=== PATIENT | female | born 1935 | race Caucasian/White ===

== ENCOUNTER 2016-10-17 15:01 | Emergency (ER) | payer MEDICARE, BC ==
[2016-10-17 15:12] VITALS: BP 217/85
--- NOTE | 2016-10-17 16:54 | ED Physician Documentation ---
PD HPI Fall - Stated complaint Stated Complaint: R SHOULDER INJURY - Chief complaint Chief Complaint: Ext Problem - History obtained from History obtained from: Patient, Family - History of Present Illness Mechanism of injury: Tripped Fall distance: Standing position Where injury occurred: Park Timing - onset: Today Injury(ies) location: Right Upper Extremity, Right Lower Extremity Quality of pain: Pain Associated symptoms: No: LOC, AMS, Amnesia, Seizures, Ear drainage, Nasal drainage, Neck pain, Weakness, Paresthesias, Dyspnea, Nausea / vomiting, Hematemesis, Abdominal distension Symptoms improve with: Rest, Position Worsens with: Movement, Palpation Contributing factors: No: Anticoagulated Similar symptoms before: Has not had sx before Recently seen: Not recently seen - Additional information Additional information: 81-year-old female was out on a function with the prison residence when she was walking across a carpeted floor and tripped falling onto her right side. She is not uncertain about exactly how this fall happened and she complains of pain in the right shoulder. She landed on the right elbow she had some pain there but does not have pain there now and she has some pain in the right hip she is able to walk and bear weight but moves slowly. Review of Systems Constitutional: denies: Fever, Chills Eyes: denies: Decreased vision Ears: denies: Ear pain Nose: denies: Congestion Throat: denies: Sore throat Respiratory: denies: Cough GI: denies: Nausea, Vomiting : denies: Dysuria Skin: denies: Rash Musculoskeletal: reports: Extremity pain, Joint pain, Pain with weight bearing. 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 HEENT: Tonsil/Adenoidectomy - Present Medications Home Medications: Ambulatory Orders Medication Instructions Recorded Confirmed No Known Home Medications [No 10/17/16 10/17/16 Known Home Medications] - Allergies Allergies/Adverse Reactions: Allergies Allergy/AdvReac Type Severity Reaction Status Date / Time codeine AdvReac Dizziness Verified 10/17/16 15:12 - Social History Does the pt smoke?: No Smoking Status: Never smoker Does the pt drink ETOH?: No Does the pt have substance abuse?: No - Immunizations Immunizations are current?: No Immunizations: TDAP >10years/unknown - POLST Patient has POLST: No PD ED PE NORMAL - Vitals Vital signs reviewed: Yes (hypertensive ) - General General: No acute distress, Well developed/nourished - HEENT HEENT: Atraumatic, PERRL, EOMI - Neck Neck: Supple, no meningeal sign, No bony TTP - Respiratory Respiratory: No respiratory distress - Back Back: No CVA TTP, No spinal TTP - Derm Derm: Normal color, Warm and dry, No rash - Extremities Extremities: No deformity, No edema, Other (There is no tenderness to the right clavicle. There is tenderness to the right shoulder anteriorly and she is albe to move this through a ROM with minimal pain. The elbow is without tenderness or reduction in ROM as is the right wrist. The right hip is with mild tenderness and she is walking stiff legged. ) - Neuro Neuro: No motor deficit, No sensory deficit - Psych Psych: Normal mood, Normal affect Results - Vitals Vitals: Vital Signs - 24 hr 10/17/16 15:06 Temperature 36.6 C Heart Rate 80 Respiratory 20 Rate Blood Pressure 217/85 H O2 Saturation 98 Oxygen O2 Source [] Room air O2 Source Room air - Labs Labs: Laboratory Tests 10/17/16 18:25 Urine Color YELLOW Urine Clarity CLEAR Urine pH 6.0 Ur Specific [place] 1.025 Urine Protein 30 H Urine Glucose (UA) NEGATIVE Urine Ketones NEGATIVE Urine Occult Blood NEGATIVE Urine Nitrite NEGATIVE Urine Bilirubin NEGATIVE Urine Urobilinogen 0.2 (NORMAL) Ur Leukocyte Esterase NEGATIVE Urine RBC 0-5 Urine WBC 0-3 Ur Squamous Epith Cells FEW Squamous Urine Bacteria Few Urine Mucus Few Strands Ur Microscopic Review INDICATED Urine Culture Comments NOT INDICATED - Rads (name of study) Right hip Radiology: Prelim report reviewed (Impression: No evidence of right hip or pelvis fracture.), EMP read indepedently, See rad report Right shoulder Radiology: Prelim report reviewed (Impression: 1. Nondisplaced scapular fracture.2. No glenohumeral fracture or dislocation. Mild degenerative changes.), EMP read indepedently, See rad report Departure - Departure Disposition: 01 Home, Self Care Clinical Impression: Contusion of hip, right Qualifiers: Encounter type: initial encounter Qualified Code(s): S70.01XA - Contusion of right hip, initial encounter Scapular fracture Qualifiers: Encounter type: initial encounter Scapula location: body Fracture type: closed Fracture alignment: nondisplaced Laterality: right Qualified Code(s): S42.114A - Nondisplaced fracture of body of scapula, right shoulder, initial encounter for closed fracture Condition: Stable Instructions: ED Immobilizer Shoulder, ED Contusion Hip Follow-Up: Familia Alexis MD [Primary Care Provider] - [facility] [Provider Group]
--- NOTE | 2016-10-17 18:35 | XRAY Preliminary Report ---
Exam: XR Shoulder 3 View RT IMPRESSION: 1. Nondisplaced scapular fracture. 2. No glenohumeral fracture or dislocation. Mild degenerative changes. [facility] SITE ID: [id number]
--- NOTE | 2016-10-17 18:37 | XRAY Preliminary Report ---
Exam: XR Hip w/Pelvis 2-3V RT IMPRESSION: No evidence of right hip or pelvis fracture. [facility] SITE ID: [id number]
--- NOTE | 2016-10-17 18:38 | XRAY Report ---
EXAM: RIGHT SHOULDER RADIOGRAPHY EXAM DATE: 10/17/2016 06:06 PM. CLINICAL HISTORY: Fall elbow contusion shoulder pain is dominant. COMPARISON: None. TECHNIQUE: 3 views. FINDINGS: Bones: Nondisplaced fracture involving the scapula just below the scapular spine seen only on the tra nsscapular view. Joints: Mild glenohumeral joint degenerative changes. Normal alignment. Soft tissues: The visualized hemithorax is unremarkable. No soft tissue swelling. IMPRESSION: 1. Nondisplaced scapular fracture. 2. No glenohumeral fracture or dislocation. Mild degenerative changes. [facility] Referring Provider Line: [phone] SITE ID: [id number]
--- NOTE | 2016-10-17 18:40 | XRAY Report ---
EXAM: RIGHT HIP AND PELVIS RADIOGRAPHY EXAM DATE: 10/17/2016 06:05 PM. HISTORY: Fall hip pain, walking. COMPARISONS: None. TECHNIQUE: 1 view of the pelvis and 1 view of the hip. FINDINGS: Bones: Normal. No fracture or bone lesion. Joints: The bilateral hip, pubis symphysis, and sacroiliac joints are preserved. Soft Tissues: Normal. No soft tissue swelling. IMPRESSION: No evidence of right hip or pelvis fracture. [facility] Referring Provider Line: [phone] SITE ID: [id number]
[2016-10-17 18:47] LABS: BILIRUBIN,URINE NEGATIVE (NEGATIVE)
[2016-10-17 19:00] LABS: UA w/ MICROSCOPIC CHARGE YES
[2016-10-17 19:13] LABS: UR CULTURE IF IND NOT INDICATED; WBC,URINE 0-3 /HPF (0-5)
== END 2016-10-17 19:30 | disposition home or self-care (01) ==
LOC: ED 15:01
DX: S42.114A Nondisplaced fracture of body of scapula, right shoulder, initial encounter for closed fracture (principal); S70.01XA Contusion of right hip, initial encounter; W01.0XXA Fall on same level from slipping, tripping and stumbling without subsequent striking against object, initial encounter; Y93.01 Activity, walking, marching and hiking; Y92.830 Public park as the place of occurrence of the external cause; I10 Essential (primary) hypertension
CPT/HCPCS: 81001; 81003; 87086; 99283

== ENCOUNTER 2016-10-31 16:49 | Outpatient (CLI) | payer MEDICARE, BC ==
--- NOTE | 2016-11-01 10:09 | MRI Report ---
EXAM: RIGHT HIP MRI WITHOUT CONTRAST EXAM DATE: 10/31/2016 05:42 PM. CLINICAL HISTORY: Right hip pain after fall 2 months ago. COMPARISON: 10/17/2016 radiograph. TECHNIQUE: Multiplanar, multisequence T1-weighted and fluid-sensitive, small seygv-lr-jytf sequences of the hip and large rklwd-bu-wynr sequences of the pelvis without contrast. Other: None. FINDINGS: Bones: There are trabecular fractures of the right obturator ring. A vertical fracture is seen near t he right pubic root on series 401, image 10. There is a transverse fracture through the right inferio r pubic ramus on series 601, image 54. Extensive marrow edema is seen throughout the entire medial ri ght obturator ring. Patient also has a trabecular left parasymphyseal pubic bone fracture as seen on series 5, image 5. The sacrum has a transverse fracture that is incompletely evaluated on the present examination. It is likely in the lower sacrum and can be seen on series 601, image 25. Right Hip: No acetabular retroversion. Femoral head/neck offset is within normal limits. No effusion or loose bodies. There is severe cartilage loss in the right femur. The right superior labrum has luis felipe r full-thickness clefting superiorly (901/15). Minimal osteophyte formation is present. The ligamentu m teres is intact. Other Joints: The visualized lumbar spine, sacroiliac joints, symphysis pubis, and contralateral hip are unremarkable. Musculature: Extensive muscle edema in the right upper adductor muscles is consistent with the recent trauma. No asymmetric fatty atrophy. The gluteus medius and minimus tendons are normal. The visualiz ed hamstring tendons are normal. The ischiofemoral space is normal. Pelvic Cavity: The patient has had a hysterectomy. The other visualized pelvic organs are unremarkabl e. Other: The visualized sciatic nerves are unremarkable. No bursitis. The subcutaneous tissues are unre markable. IMPRESSION: 1. Trabecular fractures of the right obturator ring, the left parasymphyseal pubic bone, and the infe rior sacrum. 2. Minimal right hip osteoarthritis. [facility] MUSCULOSKELETAL RADIOLOGY SECTION Referring Provider Line: [phone] SITE ID: [id number]
== END 2016-10-31 16:50 | disposition home or self-care (01) ==
LOC: DI 16:49
PROVIDERS: ATTEND Orthopaedic Surgery
DX: M25.551 Pain in right hip (principal); S32.592A Other specified fracture of left pubis, initial encounter for closed fracture; S32.10XA Unspecified fracture of sacrum, initial encounter for closed fracture; M16.11 Unilateral primary osteoarthritis, right hip

== ENCOUNTER 2017-05-03 17:52 | Emergency (ER) | payer MEDICARE, BC ==
[2017-05-03] MEDS ORDERED: ONDANSETRON ODT 4 MG TABLET TL STA (18:39)
[2017-05-03] MEDS ORDERED: HYDROcod/ACETAM 5/325 MG TABLET PO STA (18:39)
--- NOTE | 2017-05-03 18:43 | ED Physician Documentation ---
PD HPI MAJOR TRAUMA - Stated complaint Stated Complaint: GLF - Chief complaint Chief Complaint: Trauma Hd/Nk - History obtained from History obtained from: Patient, Family - History of Present Illness Mechanism of injury: Fell (Trip and fall, she has a head injury but no loss of consciousness, a scrape on the front of the head and mild headache. She mainly complains of right hand pain. She has been ambulatory since the accident. 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 HEENT: Tonsil/Adenoidectomy - Present Medications Home Medications: Ambulatory Orders Medication Instructions Recorded Confirmed HYDROcod/ACETAM 5/325 [[place] 5/325] 1 - 2 ea PO Q6H PRN #15 tablet 05/03/17 - Allergies Allergies/Adverse Reactions: Allergies Allergy/AdvReac Type Severity Reaction Status Date / Time codeine AdvReac Dizziness Verified 05/03/17 18:01 - Social History Does the pt smoke?: No Smoking Status: Never smoker Does the pt drink ETOH?: No Does the pt have substance abuse?: No - Immunizations Immunizations are current?: No Immunizations: TDAP >10years/unknown - POLST Patient has POLST: No PD ED PE NORMAL - Vitals Vital signs reviewed: Yes - General General: Alert and oriented X 3, No acute distress - HEENT HEENT: PERRL, EOMI, Other (Abrasion on the right forehead) - Neck Neck: Supple, no meningeal sign, No bony TTP - Extremities Extremities: Other (Very tender in the area of the fourth and fifth metacarpals of the right hand with decreased range of motion, no obvious tenderness about the elbow or wrist. Hips are nontender with good range of motion.) - Neuro Neuro: Alert and oriented X 3, Normal speech Results - Vitals Vitals: Vital Signs - 24 hr 05/03/17 17:57 Temperature 36.8 C Heart Rate 81 Respiratory 18 Rate Blood Pressure 195/91 H O2 Saturation 99 Oxygen O2 Source [With Activity] Room air O2 Source Room air - Rads (name of study) Head CT Radiology: EMP read contemporaneously (NAD) R elbow and Hand Xrs Radiology: EMP read contemporaneously (Somewhat limited by osteopenia, elbow is negative, concerning for proximal third and fourth metacarpal fractures.) Procedures - Splint (location) R hand Splint applied by: Tech Type of splint: Fiberglass, Short arm, Volar cock up Other: Patient tolerated well, No complications, Neurovascular intact, Good alignment Departure - Departure Disposition: 01 Home, Self Care Clinical Impression: Contusion of right orbit Qualifiers: Encounter type: initial encounter Qualified Code(s): S05.11XA - Contusion of eyeball and orbital tissues, right eye, initial encounter Facial contusion Qualifiers: Encounter type: initial encounter Qualified Code(s): S00.83XA - Contusion of other part of head, initial encounter Contusion of elbow, right Qualifiers: Encounter type: initial encounter Qualified Code(s): S50.01XA - Contusion of right elbow, initial encounter Closed fracture of 3rd metacarpal Qualifiers: Encounter type: initial encounter Metacarpal location: base Fracture alignment : nondisplaced Laterality: right Qualified Code(s): S62.342A - Nondisplaced fracture of base of third metacarpal bone, right hand, initial encounter for closed fracture Closed fracture of 4th metacarpal Qualifiers: Encounter type: initial encounter Metacarpal location: base Fracture alignment : nondisplaced Laterality: right Qualified Code(s): S62.344A - Nondisplaced fracture of base of fourth metacarpal bone, right hand, initial encounter for closed fracture Condition: Good Record reviewed to determine appropriate education?: Yes Instructions: ED Cast Care Fiberglass, ED Fx Hand Closed Follow-Up: [facility] [Provider Group] - Within 1 week Prescriptions: HYDROcod/ACETAM 5/325 [[place] 5/325] 1 - 2 ea PO Q6H PRN #15 tablet PRN Reason: Pain Comments: Your blood pressure was elevated today on check into the emergency department. This does not mean that you have hypertension, it is a common phenomenon to come to the emergency department and have elevated blood pressure. I recommend that you see your primary care physician within the week to have it rechecked when you are feeling better. Do not drink or drive while taking narcotic pain medication. Note that many narcotic pain relievers also contain Tylenol/acetaminophen. Please ensure that your total dose of acetaminophen from all sources does not exceed 3 g (3000 mg) per day. You may get constipated while on this medication. Take a stool softener such as Colace twice a day while you are on it. Also add an ieka-mvz-vkrhrah laxative such as senna or MiraLAX on any day that you do not have a bowel movement. If you received a narcotic pain medication or sedative while in the emergency department, do not drive for the next 24 hours.
--- NOTE | 2017-05-03 19:59 | CT Report ---
EXAM: CT HEAD EXAM DATE: 05/03/2017 07:43 PM. CLINICAL HISTORY: Head injury. Ground-level fall. COMPARISON: Head CT 03/07/2016. TECHNIQUE: Multiaxial CT images were obtained from the foramen magnum to the vertex. Reformats: Coron al. IV contrast: None. In accordance with CT protocol optimization, one or more of the following dose reduction techniques w ere utilized for this exam: automated exposure control, adjustment of mA and/or KV based on patient s ize, or use of iterative reconstructive technique. FINDINGS: Parenchyma: No intraparenchymal hemorrhage. No evidence of mass, midline shift, or CT findings of acu te infarction. Baker-white differentiation is distinct. Bilateral chronic microangiopathic white matte r changes are evident. Extraaxial Spaces: Normal for age. No subdural or epidural collections identified. Ventricles: The ventricles and cortical sulci are enlarged, consistent with age-related tissue loss. Sinuses and orbits: Orbits appear unremarkable. Left sphenoid sinus mucus retention cyst or polyp par tially calcified again noted measuring 1.4 cm, slightly increased. Minimal left sphenoid sinus mucosa l thickening, mildly decreased. Otherwise, the visualized paranasal sinuses and mastoid air cells sesar ear clear. Bones: No evidence of fracture or calvarial defect. Other: Moderate right frontal scalp soft tissue contusion with small hematoma. IMPRESSION: 1. Generalized age-related cortical atrophic changes without evidence of acute intracranial abnormali ty. 2. Moderate right frontal scalp soft tissue contusion with small hematoma. 3. Otherwise, as above. [facility] Referring Provider Line: [phone] SITE ID: [id number]
--- NOTE | 2017-05-03 19:59 | CT Preliminary Report ---
Exam: CT HEAD W/O IMPRESSION: 1. Generalized age-related cortical atrophic changes without evidence of acute intracranial abnormali ty. 2. Moderate right frontal scalp soft tissue contusion with small hematoma. 3. Otherwise, as above. [facility] SITE ID: [id number]
--- NOTE | 2017-05-03 20:20 | XRAY Report ---
EXAM: RIGHT HAND RADIOGRAPHY EXAM DATE: 05/03/2017 06:41 PM. CLINICAL HISTORY: Hand inj, fall. COMPARISON: 10/10/2013. TECHNIQUE: 3 views. FINDINGS: Bones: There are new deformities of the proximal third and fourth metacarpal. There appear to be disp laced fractures of the proximal metaphysis of the third and fourth metacarpal. These fractures are no t well seen due to multiple overlapping densities. Joints: There are findings of osteoarthritis. There is joint space narrowing with spurring, subchondr al cyst subluxation involving multiple joints, greatest at the second distal interphalangeal joint. Soft Tissues: There is soft tissue swelling of the second digit. There is dorsal hand soft tissue swe lling. IMPRESSION: 1. Suspicious for displaced fractures of the proximal third and fourth metacarpal metaphysis. 2. Moderately advanced findings of chronic osteoarthritis. [facility] Referring Provider Line: [phone] SITE ID: [id number]
--- NOTE | 2017-05-03 20:20 | XRAY Preliminary Report ---
Exam: XR HAND 3 VIEW RT IMPRESSION: 1. Suspicious for displaced fractures of the proximal third and fourth metacarpal metaphysis. 2. Moderately advanced findings of chronic osteoarthritis. [facility] SITE ID: [id number]
--- NOTE | 2017-05-03 20:29 | XRAY Report ---
EXAM: RIGHT ELBOW RADIOGRAPHY EXAM DATE: 05/03/2017 06:41 PM. CLINICAL HISTORY: Elbow injury, fall. COMPARISON: None. TECHNIQUE: 3 views. FINDINGS: Bones: Normal. No fractures or bone lesions. Joints: Normal. No effusion. No subluxation. Soft Tissues: Normal. No soft tissue swelling. IMPRESSION: No fracture or subluxation. [facility] Referring Provider Line: [phone] SITE ID: [id number]
[2017-05-03] MEDS ORDERED: HYDROcod/ACET 5/325 Prepack 6 PO STA (20:39)
[2017-05-03 21:11] VITALS: BP 193/82
== END 2017-05-03 21:11 | disposition home or self-care (01) ==
LOC: ED 17:52
DX: S62.342A Nondisplaced fracture of base of third metacarpal bone, right hand, initial encounter for closed fracture (principal); S62.344A Nondisplaced fracture of base of fourth metacarpal bone, right hand, initial encounter for closed fracture; S00.11XA Contusion of right eyelid and periocular area, initial encounter; S00.83XA Contusion of other part of head, initial encounter; S50.01XA Contusion of right elbow, initial encounter; W01.0XXA Fall on same level from slipping, tripping and stumbling without subsequent striking against object, initial encounter; I10 Essential (primary) hypertension
CPT/HCPCS: 29125; 70450; 73080; 73130; 99283; A9270; Q0162

== ENCOUNTER 2017-05-08 16:28 | Emergency (ER) | payer MEDICARE, BC ==
[2017-05-08 16:43] VITALS: BP 182/84
--- NOTE | 2017-05-08 17:14 | ED Physician Documentation ---
PD HPI UPPER EXT INJURY - Stated complaint Stated Complaint: RT ARM PX - Chief complaint Chief Complaint: Ext Problem - History obtained from History obtained from: Patient, Family - History of Present Illness Location: Other (Seen by me recently after a fall, she had 2 metacarpal fractures. 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 HEENT: Tonsil/Adenoidectomy - Present Medications Home Medications: Ambulatory Orders Medication Instructions Recorded Confirmed HYDROcod/ACETAM 5/325 [[place] 5/325] 1 - 2 ea PO Q6H PRN #15 tablet 05/03/17 HYDROcod/ACETAM 5/325 [[place] 5/325] 1 - 2 ea PO Q6H PRN #15 tablet 05/08/17 - Allergies Allergies/Adverse Reactions: Allergies Allergy/AdvReac Type Severity Reaction Status Date / Time codeine AdvReac Dizziness Verified 05/08/17 16:43 - Social History Does the pt smoke?: No Smoking Status: Never smoker Does the pt drink ETOH?: No Does the pt have substance abuse?: No - Immunizations Immunizations are current?: No Immunizations: TDAP >10years/unknown - POLST Patient has POLST: No PD ED PE NORMAL - Vitals Vital signs reviewed: Yes - General General: Alert and oriented X 3, No acute distress - Extremities Extremities: Other (Right hand is quite swollen and tender and bruised.) - Neuro Neuro: Alert and oriented X 3, Normal speech Results - Vitals Vitals: Vital Signs - 24 hr 05/08/17 16:39 Temperature 36.9 C Heart Rate 90 Respiratory 18 Rate Blood Pressure 182/84 H O2 Saturation 96 Oxygen O2 Source [With Activity] Room air O2 Source Room air PD MEDICAL DECISION MAKING - ED course ED course: We talked about the importance of immobilization with fractures, despite this conversation she wants something removable so that she can shower and she understands the risks of not having full immobilization and she was placed in a removable Velcro splint. Departure - Departure Disposition: 01 Home, Self Care Clinical Impression: Closed fracture of 3rd metacarpal Qualifiers: Encounter type: subsequent encounter Metacarpal location: base Fracture alignment: nondisplaced Laterality: right Fracture healing: with routine healing Qualified Code(s): S62.342D - Nondisplaced fracture of base of third metacarpal bone, right hand, subsequent encounter for fracture with routine healing Closed fracture of 4th metacarpal Qualifiers: Encounter type: subsequent encounter Metacarpal location: base Fracture alignment: nondisplaced Laterality: right Fracture healing: with routine healing Qualified Code(s): S62.344D - Nondisplaced fracture of base of fourth metacarpal bone, right hand, subsequent encounter for fracture with routine healing Condition: Good Record reviewed to determine appropriate education?: Yes Follow-Up: [facility] [Provider Group] Prescriptions: HYDROcod/ACETAM 5/325 [[place] 5/325] 1 - 2 ea PO Q6H PRN #15 tablet PRN Reason: Pain Comments: Wear the splint as much as possible and follow-up with the orthopedic surgeon as soon as possible. Your blood pressure was elevated today on check into the emergency department. This does not mean that you have hypertension, it is a common phenomenon to come to the emergency department and have elevated blood pressure. I recommend that you see your primary care physician within the week to have it rechecked when you are feeling better.
== END 2017-05-08 17:23 | disposition home or self-care (01) ==
LOC: ED 16:28
DX: S62.342D Nondisplaced fracture of base of third metacarpal bone, right hand, subsequent encounter for fracture with routine healing (principal); S62.344D Nondisplaced fracture of base of fourth metacarpal bone, right hand, subsequent encounter for fracture with routine healing; X58.XXXD Exposure to other specified factors, subsequent encounter; Z76.0 Encounter for issue of repeat prescription; I10 Essential (primary) hypertension
CPT/HCPCS: 99283

== ENCOUNTER 2017-06-19 14:33 | Outpatient (CLI) | payer MEDICARE, BC ==
--- NOTE | 2017-06-20 10:05 | XRAY Report ---
FOUR VIEW RIGHT WRIST: 06/19/2017 CLINICAL INDICATION: Metacarpal fractures. FINDINGS: AP, lateral, oblique, scaphoid views of the right wrist were compared to hand films of 05/03/2017. Osteoarthritis appears stable. There are healing fractures of the proximal third, fourth, and fifth metacarpals, with callus formation. No carpal bone fracture is appreciated. IMPRESSION: HEALING FRACTURES OF THE PROXIMAL THIRD, FOURTH, AND FIFTH METACARPALS. TD: 06/20/2017 10:05
== END 2017-06-19 14:34 | disposition home or self-care (01) ==
LOC: DI.N 14:33
PROVIDERS: ATTEND Family Medicine
DX: S62.392D Other fracture of third metacarpal bone, right hand, subsequent encounter for fracture with routine healing (principal); S62.394D Other fracture of fourth metacarpal bone, right hand, subsequent encounter for fracture with routine healing; S62.396D Other fracture of fifth metacarpal bone, right hand, subsequent encounter for fracture with routine healing

== ENCOUNTER 2018-03-21 17:19 | Emergency (ER) | payer MEDICARE, BC ==
[2018-03-21 17:44] LABS: BILIRUBIN,URINE NEGATIVE (NEGATIVE); GLUCOSE, URINE (UA) NEGATIVE (NEGATIVE); KETONES,URINE (UA) NEGATIVE (NEGATIVE); LEUKOCYTE ESTERASE, URINE MODERATE (NEGATIVE); NITRITE,URINE NEGATIVE (NEGATIVE); OCCULT BLOOD,URINE MODERATE (NEGATIVE); PROTEIN,URINE TRACE mg/dL (NEGATIVE); UROBILINOGEN,URINE 0.2 (NORMAL) E.U./dL (NORMAL)
--- NOTE | 2018-03-21 17:45 | ED Physician Documentation ---
PD HPI FEMALE - Stated complaint Stated Complaint: FEMALE - Chief complaint Chief Complaint: UTI - History obtained from History obtained from: Patient - History of Present Illness Timing - onset: Yesterday (Since last night she has had urinary burning and frequency associated with fatigue but no nausea, fevers, or flank pain.) Review of Systems Constitutional: denies: Fever, Chills GI: denies: Abdominal Pain, Nausea, Vomiting : reports: Dysuria, Frequency PD PAST MEDICAL HISTORY - Past Medical History Cardiovascular: Hypertension Musculoskeletal: None - Past Surgical History Past Surgical History: Yes 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 HEENT: Tonsil/Adenoidectomy - Present Medications Home Medications: Ambulatory Orders Medication Instructions Recorded Confirmed Phenazopyridine [Pyridium] 100 mg PO TID #6 tablet 03/21/18 RX: Ciprofloxacin [Cipro] 250 mg PO Q12H #10 tablet 03/21/18 - Allergies Allergies/Adverse Reactions: Allergies Allergy/AdvReac Type Severity Reaction Status Date / Time codeine AdvReac Dizziness Verified 03/21/18 17:25 - Social History Does the pt smoke?: No Smoking Status: Never smoker Does the pt drink ETOH?: No Does the pt have substance abuse?: No - Immunizations Immunizations are current?: No Immunizations: TDAP >10years/unknown - POLST Patient has POLST: No PD ED PE NORMAL - Vitals Vital signs reviewed: Yes - General General: Alert and oriented X 3, No acute distress - Abdomen Abdomen: Soft, Non tender - Back Back: No CVA TTP - Neuro Neuro: Alert and oriented X 3 (But with some memory difficulties), Normal speech Results - Vitals Vitals: Vital Signs - 24 hr 03/21/18 03/21/18 17:21 18:04 Temperature 36.3 C L Heart Rate 87 76 Respiratory 20 16 Rate Blood Pressure 170/111 H 178/88 H O2 Saturation 96 97 Oxygen O2 Source [With Activity] Room air O2 Source Room air - Labs Labs: Laboratory Tests 03/21/18 17:30 Urine Color YELLOW Urine Clarity HAZY Urine pH 6.0 Ur Specific [place] 1.025 Urine Protein TRACE Urine Glucose (UA) NEGATIVE Urine Ketones NEGATIVE Urine Occult Blood MODERATE H Urine Nitrite NEGATIVE Urine Bilirubin NEGATIVE Urine Urobilinogen 0.2 (NORMAL) Ur Leukocyte Esterase MODERATE H Urine RBC TNTC H Urine WBC >25 H Urine WBC Clumps PRESENT Ur Squamous Epith Cells RARE Squamous Urine Bacteria Many H Ur Microscopic Review INDICATED Urine Culture Comments INDICATED Departure - Departure Disposition: 01 Home, Self Care Clinical Impression: Cystitis Condition: Good Record reviewed to determine appropriate education?: Yes Instructions: ED UTI Cystitis Female Prescriptions: RX: Ciprofloxacin [Cipro] 250 mg PO Q12H #10 tablet Phenazopyridine [Pyridium] 100 mg PO TID #6 tablet Comments: We will culture your urine, the results should be done in 48-72 hours. If an antibiotic change is necessary we will call you. Return if worse in the meantime, especially if you develop increasing flank pain, fevers, or cannot keep down the medication. Your blood pressure was elevated today on check into the emergency department. This does not mean that you have hypertension, it is a common phenomenon to come to the emergency department and have elevated blood pressure. I recommend that you see your primary care physician within the week to have it rechecked when you are feeling better. Discharge Date/Time: 03/21/18 18:06
[2018-03-21 17:47] LABS: CLARITY,URINE HAZY (CLEAR)
[2018-03-21 17:51] LABS: BACTERIA,URINE Many /HPF (None Seen); RBC,URINE TNTC /HPF (0-5); SQUAMOUS EPITHELIAL CELL,UR RARE Squamous (<= Few); WBC CLUMPS,URINE PRESENT
[2018-03-21] MEDS ORDERED: CIPROFLOXACIN 250 MG TABLET PO STA (17:54)
[2018-03-21] MEDS ORDERED: PHENAZOPYRIDINE 100 MG TABLET PO STA (17:54)
[2018-03-21 18:05] VITALS: BP 178/88
== END 2018-03-21 18:06 | disposition home or self-care (01) ==
LOC: ED 17:19
DX: N30.90 Cystitis, unspecified without hematuria (principal); I10 Essential (primary) hypertension
CPT/HCPCS: 81001; 87086; 87181; 99283; A9270; 81003

== ENCOUNTER 2018-03-29 02:00 | Outpatient (CLI) | payer MEDICARE, BC | END 2018-03-29 02:01 | disposition home or self-care (01) | LOC: EMS 02:00 | PROVIDERS: ATTEND Surgery | DX: Z53.9 Procedure and treatment not carried out, unspecified reason (principal) ==

== ENCOUNTER 2018-03-29 02:00 | Outpatient (CLI) | payer MEDICARE, BC | END 2018-03-29 02:01 | disposition short-term general hospital (02) | LOC: EMS 02:00 | PROVIDERS: ATTEND Surgery | DX: R21 Rash and other nonspecific skin eruption (principal) | CPT/HCPCS: A0425; A0429 ==

== ENCOUNTER 2018-05-10 15:46 | Emergency (ER) | payer MEDICARE, BC ==
--- NOTE | 2018-05-10 16:21 | ED Physician Documentation ---
History of Present Illness - Stated complaint Stated Complaint: LOWER BACK PX/SHINGLES - Chief complaint Chief Complaint: General - History obtained from History obtained from: Patient, Family - History of Present Illness Timing: How many days ago (3) Pain level max: 5 Pain level now: 4 - Additonal information Additional information: 83-year-old female presents to the emergency department with dysuria, urinary frequency and urgency for the past 2-3 days. Also complained of low back pain. Recently diagnosed with shingles is on gabapentin for this. Shingles is on the left lower back. No fevers. No vomiting. No diarrhea. Intermittent constipation. Nothing makes the pain better. 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 HEENT: Tonsil/Adenoidectomy - Present Medications Home Medications: Ambulatory Orders Medication Instructions Recorded Confirmed Ciprofloxacin [Cipro] 250 mg PO Q12H #10 tablet 03/21/18 Phenazopyridine [Pyridium] 100 mg PO TID #6 tablet 03/21/18 traMADol [Ultram] 50 - 100 mg PO Q6H PRN #20 tablet 05/10/18 - Allergies Allergies/Adverse Reactions: Allergies Allergy/AdvReac Type Severity Reaction Status Date / Time codeine AdvReac Dizziness Verified 05/10/18 15:59 - Social History Does the pt smoke?: No Smoking Status: Never smoker Does the pt drink ETOH?: No Does the pt have substance abuse?: No - Immunizations Immunizations are current?: No Immunizations: TDAP >10years/unknown - POLST Patient has POLST: No PD ED PE NORMAL - Vitals Vital signs reviewed: Yes - General General: Alert and oriented X 3, No acute distress - HEENT HEENT: Moist mucous membranes - Neck Neck: Supple, no meningeal sign - Cardiac Cardiac: RRR - Respiratory Respiratory: No respiratory distress, Clear bilaterally - Abdomen Abdomen: Soft, Non tender, Non distended - Back Back: No CVA TTP, No spinal TTP, Other (Shingles to the left side, low lumbar approximately L4) - Derm Derm: Warm and dry - Extremities Extremities: No edema - Neuro Neuro: Alert and oriented X 3 Results - Vitals Vitals: Vital Signs - 24 hr 05/10/18 15:54 Temperature 36.3 C L Heart Rate 84 Respiratory 16 Rate Blood Pressure 188/91 H O2 Saturation 96 Oxygen O2 Source [With Activity] Room air O2 Source Room air - Labs Labs: Laboratory Tests 05/10/18 17:10 Urine Color YELLOW Urine Clarity CLEAR Urine pH 6.0 Ur Specific [place] 1.020 Urine Protein NEGATIVE Urine Glucose (UA) NEGATIVE Urine Ketones NEGATIVE Urine Occult Blood NEGATIVE Urine Nitrite NEGATIVE Urine Bilirubin NEGATIVE Urine Urobilinogen 0.2 (NORMAL) Ur Leukocyte Esterase NEGATIVE Ur Microscopic Review NOT INDICATED Urine Culture Comments NOT INDICATED PD MEDICAL DECISION MAKING - ED course Complexity details: reviewed results, re-evaluated patient, considered differential, d/w patient, d/w family ED course: 83-year-old female presents to the emergency department with low back and left leg pain. This is in the dermatomal distribution of her shingles. She also complained of dysuria. Urinalysis is negative. She is well-appearing, nontoxic. Will trial on tramadol for pain. Patient counseled regarding signs and symptoms for which I believe and urgent re-evaluation would be necessary. Patient with good understanding of and agreement to plan and is comfortable going home at this time This document was made in part using voice recognition software. While efforts are made to proofread this document, sound alike and grammatical errors may occur. Departure - Departure Disposition: 01 Home, Self Care Clinical Impression: Shingles Qualifiers: Herpes zoster complications: without complications Qualified Code(s): B02.9 - Zoster without complications Condition: Good Instructions: ED Shingles Follow-Up: Familia Alexis MD [Primary Care Provider] - Within 1 week Prescriptions: traMADol [Ultram] 50 - 100 mg PO Q6H PRN #20 tablet PRN Reason: back pain Comments: Return if you worsen. Follow-up with your doctor for further care. Your urinalysis was normal tonight. Do not drink alcohol or drive while on narcotic pain medicine. Note that many narcotic pain relievers also contain tylenol/acetaminophen. Please ensure that your total dose of acetaminophen from all sources does not exceed 3 grams (3000mg) per day. You may constipated on this medication, take a stool softener such as "Colace" twice a day while you are on it. Also recommend a [id number]-[id number] laxative such as senna or MiraLAX any day that you do not have a bowel movement. If you received narcotic pain medication in the emergency department, do not drive or operate machinery for the next 24 hours.
[2018-05-10 17:25] LABS: BILIRUBIN,URINE NEGATIVE (NEGATIVE); GLUCOSE, URINE (UA) NEGATIVE (NEGATIVE); KETONES,URINE (UA) NEGATIVE (NEGATIVE); LEUKOCYTE ESTERASE, URINE NEGATIVE (NEGATIVE); NITRITE,URINE NEGATIVE (NEGATIVE); OCCULT BLOOD,URINE NEGATIVE (NEGATIVE); PROTEIN,URINE NEGATIVE (NEGATIVE); UROBILINOGEN,URINE 0.2 (NORMAL) E.U./dL (NORMAL)
[2018-05-10 17:27] LABS: CLARITY,URINE CLEAR (CLEAR)
[2018-05-10] MEDS ORDERED: traMADol 50 MG TABLET PO STA (17:29)
[2018-05-10 17:59] VITALS: BP 197/109
== END 2018-05-10 18:07 | disposition home or self-care (01) ==
LOC: ED 15:46
DX: B02.9 Zoster without complications (principal); R30.0 Dysuria; I10 Essential (primary) hypertension
CPT/HCPCS: 81003; 99283; A9270; 81001; 87086

== ENCOUNTER 2018-07-08 23:05 | Outpatient (CLI) | payer MEDICARE, BC | END 2018-07-08 23:06 | disposition critical access hospital (66) | LOC: EMS 23:05 | PROVIDERS: ATTEND Surgery | DX: M79.604 Pain in right leg (principal); W19.XXXA Unspecified fall, initial encounter; Y92.099 Unspecified place in other non-institutional residence as the place of occurrence of the external cause | CPT/HCPCS: A0425; A0429 ==

== ENCOUNTER 2018-07-08 23:21 | Emergency (ER) | payer MEDICARE, BC ==
--- NOTE | 2018-07-08 23:39 | ED Physician Documentation ---
PD HPI Fall - Stated complaint Stated Complaint: GLF, RIGHT HIP PAIN - Chief complaint Chief Complaint: Trauma Ext - History obtained from History obtained from: Patient, EMS - History of Present Illness Mechanism of injury: Lost balance Fall distance: Standing position Where injury occurred: Other (lives at [facility]) Injury(ies) location: Right Lower Extremity (right hip) Quality of pain: Pain Associated symptoms: No: LOC, Neck pain, Weakness Symptoms improve with: Rest Worsens with: Movement Contributing factors: No: Anticoagulated Recently seen: Not recently seen - Additional information Additional information: fell in bathroom, could not get up due to right hip pain. 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 : None HEENT: None Psych: None Musculoskeletal: None Derm: None - Past Surgical History Past Surgical History: Yes 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 HEENT: Tonsil/Adenoidectomy - Present Medications Home Medications: Ambulatory Orders Medication Instructions Recorded Confirmed No Known Home Medications 07/08/18 07/08/18 - Allergies Allergies/Adverse Reactions: Allergies Allergy/AdvReac Type Severity Reaction Status Date / Time codeine AdvReac Dizziness Verified 07/08/18 23:25 - Social History Does the pt smoke?: No Smoking Status: Never smoker Does the pt drink ETOH?: No Does the pt have substance abuse?: No - Immunizations Immunizations are current?: No Immunizations: TDAP >10years/unknown - POLST Patient has POLST: Yes PD ED PE NORMAL - Vitals Vital signs reviewed: Yes - General General: No acute distress, Well developed/nourished, Other (awake, alert) - Neck Neck: No bony TTP - Cardiac Cardiac: RRR, No murmur - Respiratory Respiratory: No respiratory distress, Clear bilaterally - Abdomen Abdomen: Soft, Non tender - Back Back: No spinal TTP - Extremities Extremities: No edema - Neuro Neuro: No motor deficit, No sensory deficit PD ED PE EXPANDED - Extremities Extremities: Tenderness, Limited ROM, Right hip Results - Vitals Vitals: Oxygen O2 Source [With Activity] Room air O2 Source Room air - Labs Labs: Laboratory Tests 07/09/18 00:10 Urine Color YELLOW Urine Clarity CLEAR Urine pH 7.0 Ur Specific [place] 1.015 Urine Protein 30 H Urine Glucose (UA) NEGATIVE Urine Ketones NEGATIVE Urine Occult Blood NEGATIVE Urine Nitrite NEGATIVE Urine Bilirubin NEGATIVE Urine Urobilinogen 0.2 (NORMAL) Ur Leukocyte Esterase NEGATIVE Urine RBC 0-5 Urine WBC 0-3 Ur Squamous Epith Cells FEW Squamous Urine Bacteria Rare Ur Microscopic Review INDICATED Urine Culture Comments NOT INDICATED - Rads (name of study) right hip xrays Radiology: Prelim report reviewed, See rad report right hip CT Radiology: Prelim report reviewed, See rad report PD MEDICAL DECISION MAKING - ED course Complexity details: reviewed results, re-evaluated patient, considered differential, d/w patient, d/w family Departure - Departure Disposition: 01 Home, Self Care Clinical Impression: Contusion of hip, right Qualifiers: Encounter type: initial encounter Qualified Code(s): S70.01XA - Contusion of right hip, initial encounter Condition: Good Instructions: ED Contusion Hip Follow-Up: Familia Alexis MD [Primary Care Provider] - Discharge Date/Time: 07/09/18 02:17
[2018-07-09 00:21] LABS: BILIRUBIN,URINE NEGATIVE (NEGATIVE); GLUCOSE, URINE (UA) NEGATIVE (NEGATIVE); KETONES,URINE (UA) NEGATIVE (NEGATIVE); LEUKOCYTE ESTERASE, URINE NEGATIVE (NEGATIVE); NITRITE,URINE NEGATIVE (NEGATIVE); OCCULT BLOOD,URINE NEGATIVE (NEGATIVE); PROTEIN,URINE 30 mg/dL (NEGATIVE); UROBILINOGEN,URINE 0.2 (NORMAL) E.U./dL (NORMAL)
[2018-07-09 00:22] LABS: CLARITY,URINE CLEAR (CLEAR)
[2018-07-09 00:26] LABS: RBC,URINE 0-5 /HPF (0-5); SQUAMOUS EPITHELIAL CELL,UR FEW Squamous (<= Few)
[2018-07-09 00:27] LABS: BACTERIA,URINE Rare /HPF (None Seen)
--- NOTE | 2018-07-09 00:52 | XRAY Report ---
Reason: right hip pain Procedure Date: 07/09/2018 Accession Number: [id number] / [id number] Procedure: XR - Hip w/Pelvis 2-3V RT CPT Code: FULL RESULT: EXAM: RIGHT HIP RADIOGRAPHY EXAM DATE: 07/09/2018 12:26 AM. CLINICAL HISTORY: Right hip pain. COMPARISON: HIP W/PELVIS 2-3V RT 10/17/2016 5:34 PM. TECHNIQUE: 2 views. FINDINGS: Bones: There is a faint lucency across the posterior cortex of the right femoral neck, seen on the lateral view, suspicious for a nondisplaced fracture. Old, healed right inferior pubic ramus fracture. Joints: Mild osteoarthritis, stable. Soft Tissues: Normal. No soft tissue swelling. IMPRESSION: Faint lucency across the posterior cortex of the right femoral neck on the lateral view, suspicious for a nondisplaced fracture. RADIA
--- NOTE | 2018-07-09 01:52 | CT Report ---
Reason: right hip injury Procedure Date: 07/09/2018 Accession Number: [id number] / [id number] Procedure: CT - LOWER EXTREMITY WO - RT CPT Code: FULL RESULT: EXAM: RIGHT HIP CT WITHOUT CONTRAST EXAM DATE: 07/09/2018 01:31 AM. CLINICAL HISTORY: Right hip injury. COMPARISON: None. TECHNIQUE: Thin-section axial images were acquired of the hip without contrast. Post-processing: Coronal and sagittal reformats. Other: None. In accordance with CT protocol optimization, one or more of the following dose reduction techniques were utilized for this exam: automated exposure control, adjustment of mA and/or KV based on patient size, or use of iterative reconstructive technique. FINDINGS: Bones: No acute fracture or bone lesion. The questioned lucency on plain film is not confirmed on CT. Old, healed right inferior pubic ramus fracture. Joints: Mild osteoarthritis. Musculature: Normal. No fatty atrophy. Other: The visualized intraperitoneal structures are unremarkable. IMPRESSION: Mild osteoarthritis. No acute fracture is identified. RADIA
[2018-07-09 02:18] VITALS: BP 156/101
== END 2018-07-09 02:17 | disposition home or self-care (01) ==
LOC: EDUNIT# → ED 23:21
DX: S70.01XA Contusion of right hip, initial encounter (principal); W18.30XA Fall on same level, unspecified, initial encounter; Y92.031 Bathroom in apartment as the place of occurrence of the external cause; I10 Essential (primary) hypertension
CPT/HCPCS: 81001; 81003; 87086; 99283

== ENCOUNTER 2018-12-20 18:46 | Emergency (ER) | payer MEDICARE, BC ==
--- NOTE | 2018-12-20 18:54 | ED Physician Documentation ---
PD HPI SKIN - Stated complaint Stated Complaint: POSS SHINGLES - History obtained from History obtained from: Patient, Family - History of Present Illness Timing - onset: How many days ago (3) Timing - duration: Days (3) Timing - details: Gradual onset Location: LLE Quality / character: Painful Associated symptoms: No: Fever, Myalgias Recently seen: Not recently seen - Additional information Additional information: This is an 83-year-old woman who presents with complaints that she is believe she is" extreme pain" from her shingles that she is had since February. She is a difficult historian appears to have some memory problems but her daughter -in-law is here helping to fill in some of the gaps. Apparently she was diagnosed with shingles in February she continued to have pain after that it was in her left lower back and onto the left leg.She does not know if the rash is still there because she cannot see her back. She was placed on gabapentin but continued to have pain where she had the shingles despite the gabapentin and then 3 days ago she got a more intense pain on the left hip. She denies that there is twinges but the [id number]-[id number] noted her to be gasping and kind of flinching every once in a while and believes that it seemed like she had spasms of pain. Tonight when she was at dinner sitting she had to stand up in order to eat because it was so painful and she took some Tylenol. There is been no known injury. No pain radiating down the leg. It does hurt more if she puts direct pressure on it. She is had no nausea or vomiting and no fever. She is had some urinary frequency but denies burning or blood. Denies prior back injury. She is not allergic to any medications. She does live at an assisted living. Review of Systems Constitutional: denies: Fever, Myalgias GI: denies: Nausea, Vomiting : reports: Frequency (Nocturia). denies: Dysuria, Hematuria Skin: reports: Rash (Scarring on the lower back from the shingles. There is a rash under the breasts bilaterally that has been there for couple of weeks. It is not itchy or painful.) Musculoskeletal: reports: Joint pain (Left hip). 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 HEENT: Tonsil/Adenoidectomy - Present Medications Home Medications: Ambulatory Orders Medication Instructions Recorded Confirmed Gabapentin 100 mg PO TID 12/20/18 12/20/18 - Allergies Allergies/Adverse Reactions: Allergies Allergy/AdvReac Type Severity Reaction Status Date / Time codeine AdvReac Dizziness Verified 07/08/18 23:25 - Social History Does the pt smoke?: No Smoking Status: Never smoker Does the pt drink ETOH?: No Does the pt have substance abuse?: No - Immunizations Immunizations are current?: No Immunizations: TDAP >10years/unknown - POLST Patient has POLST: Yes PD ED PE NORMAL - Vitals Vital signs reviewed: Yes - General General: No acute distress, Well developed/nourished - HEENT HEENT: Atraumatic, PERRL, Moist mucous membranes - Respiratory Respiratory: No respiratory distress - Derm Derm: Normal color, Warm and dry, No rash, Other (Scarring on the left lower back onto the buttock from the shingles episode.) - Extremities Extremities: No deformity, Other (There is pain directly over the greater trochanter at the site of the bursa the left hip. No erythema. No pain with internal and external rotation of the left hip. There is a negative seated straight leg raise. She has 2+ dorsalis pedis pulses bilaterally. Reflexes were 1+ and symmetrical at the quadriceps. Sensation is intact to light touch in the lower extremities bilaterally.) - Neuro Neuro: No motor deficit, No sensory deficit, Normal speech, Other (She uses a cane and her gait is very stilted.) - Psych Psych: Other (She is repetitively stating the same statements over and over. She is very pleasant.) Results - Vitals Vitals: Vital Signs - 24 hr 12/20/18 19:00 Temperature 37.1 C Heart Rate 80 Respiratory 14 Rate Blood Pressure 196/84 H O2 Saturation 96 Oxygen O2 Source [With Activity] Room air O2 Source Room air PD MEDICAL DECISION MAKING - ED course Complexity details: d/w patient, d/w family ED course: Patient has about 3 to 4 days worth of gabapentin left with no refills she can go ahead and finish that out. I explained to her I do not believe this is due to her shingles causing the pain in her left hip at this time. I think she has bursitis. We discussed x-rays but I do not feel that they would be of high yield in terms of delineating what is actually causing her pain and they were comfortable deferring any x-rays at this time. She is can start taking naproxen twice a day, applying ice and follow-up with primary care provider if your symptoms are not improving in couple of weeks. Departure - Departure Disposition: Home, Self Care Clinical Impression: Bursitis Qualifiers: Bursitis location: hip Hip bursitis location: trochanteric bursitis Laterality: left Qualified Code(s): M70.62 - Trochanteric bursitis, left hip Condition: Good Instructions: ED Bursitis Follow-Up: Familia Alexis MD [Primary Care Provider] - Comments: Finish the gabapentin prescription. Take naproxen 250 mg 1 tablet [id number] twice a day for no more than 10 days. Apply ice to the left hi p where it is painful. Avoid any repetitive movement of the hip. If the pain is not improving in another 10 to 14 days you should follow-up with your primary care provider for reevaluation and further management.
[2018-12-20 19:02] VITALS: BP 196/84
[2018-12-20] MEDS ORDERED: NAPROXEN 250 MG TABLET PO STA (19:48)
== END 2018-12-20 20:09 | disposition home or self-care (01) ==
LOC: ED 18:46
DX: M70.62 Trochanteric bursitis, left hip (principal); M54.5 Low back pain; R35.0 Frequency of micturition; R21 Rash and other nonspecific skin eruption; I10 Essential (primary) hypertension; Z86.19 Personal history of other infectious and parasitic diseases
CPT/HCPCS: 99282; 99284; A9270

== ENCOUNTER 2018-12-23 12:23 | Outpatient (CLI) | payer MEDICARE, BC ==
--- NOTE | 2018-12-24 11:17 | XRAY Report ---
Reason: Low back, LS pain Procedure Date: 12/23/2018 Accession Number: [id number] / [id number] Procedure: XRN - SI Joints CPT Code: FULL RESULT: EXAM: SACROILIAC JOINT RADIOGRAPHY EXAM DATE: 12/23/2018 01:05 PM. CLINICAL HISTORY: Low back, lumbosacral pain. COMPARISON: HIP W/PELVIS 2-3V RT 07/08/2018 11:56 PM. TECHNIQUE: 3 views. FINDINGS: Bones: Generalized bony demineralization. No fracture or bone lesion. Joints: Moderate and symmetric subchondral sclerotic changes along both sacroiliac joints, consistent with degenerative changes. No diastases identified. Soft Tissues: Normal. 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 RADIA
--- NOTE | 2018-12-24 11:21 | XRAY Report ---
Reason: LOW BACK PAIN Procedure Date: 12/23/2018 Accession Number: [id number] / [id number] Procedure: XRN - Lumbar Spine 2 View CPT Code: FULL RESULT: EXAM: LUMBOSACRAL SPINE RADIOGRAPHY EXAM DATE: 12/23/2018 01:05 PM. CLINICAL HISTORY: Low back pain. COMPARISONS: SACROILIAC JOINTS 12/23/2018 12:55 PM. TECHNIQUE: 3 views. FINDINGS: Alignment: Moderate rightward lumbar scoliosis. No spondylolisthesis detected. Bones: Five qrw-[id number]-cofbpqy lumbar vertebral bodies are present. No fractures or bone lesions. Generalized bony demineralization. Osteophytic spurring and bony bridging at L5-S1. Disks: Limited detail on lateral views secondary to overlying soft tissue and bone demineralization. Multilevel moderate to severe disk space narrowing throughout the lumbar spine, including L4-L5 and L5-S1. Facets: No degenerative changes. Sacroiliac Joints: Bilateral subchondral sclerotic changes, compatible with degenerative changes. No diastases detected. Soft Tissues: Normal. The visualized bowel gas pattern is normal. IMPRESSION: Moderate rightward lumbar scoliosis. Multilevel degenerative changes. No vertebral body collapse or pathologic subluxation detected. RADIA
== END 2018-12-23 12:24 | disposition home or self-care (01) ==
LOC: DI.N 12:23
PROVIDERS: ATTEND Physician Assistant
DX: M48.061 Spinal stenosis, lumbar region without neurogenic claudication (principal); M41.86 Other forms of scoliosis, lumbar region; M53.3 Sacrococcygeal disorders, not elsewhere classified
CPT/HCPCS: 72100; 72202

== ENCOUNTER 2018-12-24 15:36 | Emergency (ER) | payer MEDICARE, BC ==
[2018-12-24] MEDS ORDERED: HYDROcod/ACETAM 5/325 MG TABLET PO STA (17:34)
[2018-12-24] MEDS ORDERED: predniSONE 20 MG TABLET PO STA (17:35)
--- NOTE | 2018-12-24 17:38 | ED Physician Documentation ---
History of Present Illness - Stated complaint Stated Complaint: SIDE/BACK PX - Chief complaint Chief Complaint: Abd Pain - History obtained from History obtained from: Patient (For the last week without specific injury she had excruciating pain over the left lateral pelvic brim. Its worse if she sitting for a long time. A little better with walking. She was seen here and diagnosed with bursitis. Aleve and gabapentin were not helpful. Subsequently was put on a muscle relaxer which only gives her dry mouth. She had outpatient x-rays of the SI joints and lumbar spine showing degenerative disease and scoliosis. She denies weakness, numbness, tingling, saddle anesthesia. 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 SPECIALIST: Hysterectomy HEENT: Tonsil/Adenoidectomy - Present Medications Home Medications: Ambulatory Orders Medication Instructions Recorded Confirmed Gabapentin 100 mg PO TID 12/20/18 12/20/18 Hydrocodone/Acetaminophen 1 - 2 each PO Q6H PRN #14 tablet 12/24/18 [Hydrocodon-Acetaminophen 5-325] predniSONE [Deltasone] 20 mg PO [id number] #21 tab 12/24/18 - Allergies Allergies/Adverse Reactions: Allergies Allergy/AdvReac Type Severity Reaction Status Date / Time codeine AdvReac Dizziness Verified 12/24/18 15:54 - Social History Does the pt smoke?: No Smoking Status: Never smoker Does the pt drink ETOH?: No Does the pt have substance abuse?: No - Immunizations Immunizations are current?: No Immunizations: TDAP >10years/unknown - POLST Patient has POLST: Yes PD ED PE NORMAL - Vitals Vital signs reviewed: Yes - General General: No acute distress, Well developed/nourished, Other (She is pleasantly demented) - Abdomen Abdomen: Soft, Non tender - Back Back: Other (No tenderness over the midline lumbar spine. She is quite tender over the left SI joint and sacral iliac notch. I do not appreciate any tenderness over the left hip bursa, she has painless internal and external rotation of the left hip and a normal gait.) - Derm Derm: Normal color, Warm and dry Results - Vitals Vitals: Vital Signs - 24 hr 12/24/18 12/24/18 15:54 17:21 Temperature 36.5 C Heart Rate 88 82 Respiratory 16 18 Rate Blood Pressure 196/90 H 209/103 H O2 Saturation 98 98 Oxygen O2 Source [With Activity] Room air O2 Source Room air - Labs Labs: Laboratory Tests 12/24/18 17:42 Urine Color YELLOW Urine Clarity CLEAR Urine pH 5.5 Ur Specific [place] 1.025 Urine Protein NEGATIVE Urine Glucose (UA) NEGATIVE Urine Ketones 15 H Urine Occult Blood NEGATIVE Urine Nitrite NEGATIVE Urine Bilirubin NEGATIVE Urine Urobilinogen 0.2 (NORMAL) Ur Leukocyte Esterase NEGATIVE Ur Microscopic Review NOT INDICATED Urine Culture Comments NOT INDICATED PD MEDICAL DECISION MAKING - ED course ED course: 83-year-old woman presents with what seems more like sciatica or sacroiliitis to me than bursitis. Regardless the question is 1 of pain management. We will trial some steroids and hydrocodone. Departure - Departure Disposition: 01 Home, Self Care Clinical Impression: Left sided sciatica Condition: Good Record reviewed to determine appropriate education?: Yes Instructions: ED Sciatica Prescriptions: Hydrocodone/Acetaminophen [Hydrocodon-Acetaminophen 5-325] 1 - 2 each PO Q6H PRN #14 tablet PRN Reason: pain predniSONE [Deltasone] 20 mg PO [id number] #21 tab Comments: Call your doctor to arrange a follow-up appointment, make the next available appointment. In the interim, return anytime if worse or if new symptoms develop. Your blood pressure was elevated today on check into the emergency department. This does not mean that you have hypertension, it is a common phenomenon to come to the emergency department and have elevated blood pressure. I recommend that you see your primary care physician within the week to have it rechecked when you are feeling better. Do not drink or drive while taking narcotic pain medication. Note that many narcotic pain relievers also contain Tylenol/acetaminophen. Please ensure that your total dose of acetaminophen from all sources does not exceed 3 g (3000 mg) per day. You may get constipated while on this medication. Take a stool softener such as Colace twice a day while you are on it. Also add an [id number] laxative such as senna or MiraLAX on any day that you do not have a bowel movement. If you received a narcotic pain medication or sedative while in the emergency department, do not drive for the next 24 hours.
[2018-12-24 17:52] LABS: BILIRUBIN,URINE NEGATIVE (NEGATIVE); GLUCOSE, URINE (UA) NEGATIVE (NEGATIVE); KETONES,URINE (UA) 15 mg/dL (NEGATIVE); LEUKOCYTE ESTERASE, URINE NEGATIVE (NEGATIVE); NITRITE,URINE NEGATIVE (NEGATIVE); OCCULT BLOOD,URINE NEGATIVE (NEGATIVE); PH,URINE 5.5 PH (5.0-7.5); PROTEIN,URINE NEGATIVE (NEGATIVE); UROBILINOGEN,URINE 0.2 (NORMAL) E.U./dL (NORMAL)
[2018-12-24 17:59] LABS: CLARITY,URINE CLEAR (CLEAR)
[2018-12-24 18:46] VITALS: BP 204/99
== END 2018-12-24 18:50 | disposition home or self-care (01) ==
LOC: ED 15:36
DX: M51.16 Intervertebral disc disorders with radiculopathy, lumbar region (principal); I10 Essential (primary) hypertension; F03.90 Unspecified dementia, unspecified severity, without behavioral disturbance, psychotic disturbance, mood disturbance, and anxiety
CPT/HCPCS: 81003; 99283; A9270; J7512; 81001; 87086

== ENCOUNTER 2019-02-06 20:42 | Outpatient (CLI) | payer MEDICARE, BC | END 2019-02-06 20:43 | disposition critical access hospital (66) | LOC: EMS 20:42 | PROVIDERS: ATTEND Surgery | DX: R51 Headache (principal); R29.810 Facial weakness; R53.1 Weakness | CPT/HCPCS: A0425; A0427 ==

== ENCOUNTER 2019-02-09 14:47 | Outpatient (CLI) | payer MEDICARE, BC | END 2019-02-09 14:48 | disposition home or self-care (01) | LOC: EMS 14:47 | PROVIDERS: ATTEND Surgery | DX: I62.9 Nontraumatic intracranial hemorrhage, unspecified (principal); R46.4 Slowness and poor responsiveness; R52 Pain, unspecified; Z74.01 Bed confinement status | CPT/HCPCS: A0425; A0428 ==